=== PATIENT | male | born 1990 | race American Indian/Alaskan Native ===

== ENCOUNTER 2017-02-15 14:51 | Emergency (ER) | payer SELFPAY ==
[2017-02-15 15:14] VITALS: BP 129/82; PULSE 76; RESP 18; TEMP 98; O2SAT 99
--- NOTE | 2017-02-15 15:52 | ED PDOC ---
HPI: General Adult Time Seen by Provider: 02/15/17 15:21 Chief Complaint (Nursing): Medical Clearance Chief Complaint (Provider): Denies complaint History Per: Patient History/Exam Limitations: no limitations Additional Complaint(s): Chandrakant Wagner, a 27 year old male, presents to the ED for treatment. The patient reports that his partner was diagnosed with trichomoniasis and he is here only to get checked. Denies any symptoms. Past Medical History Reviewed: Historical Data, Nursing Documentation, Vital Signs Vital Signs: Last Vital Signs Temp 98 F 02/15/17 15:12 Pulse 76 02/15/17 15:12 Resp 18 02/15/17 15:12 BP 129/82 02/15/17 15:12 Pulse Ox 99 02/15/17 15:55 - Medical History PMH: No Chronic Diseases - Surgical History Surgical History: No Surg Hx - Family History Family History: States: Unknown Family Hx - Social History Current smoker - smoking cessation education provided: No Alcohol: None Drugs: Denies - Home Medications Home Medications: Ambulatory Orders Medication Instructions Recorded metroNIDAZOLE [Flagyl] 2,000 mg PO ONCE #4 tab 02/15/17 - Allergies Allergies/Adverse Reactions: Allergies Allergy/AdvReac Type Severity Reaction Status Date / Time No Known Allergies Allergy Verified 02/15/17 15:12 Review of Systems Constitutional: Positive for: Other (Patient denies nay medical problems) Physical Exam - Reviewed Nursing Documentation Reviewed: Yes Vital Signs Reviewed: Yes - Physical Exam Appears: Positive for: Non-toxic, No Acute Distress Head Exam: Positive for: ATRAUMATIC, NORMAL INSPECTION, NORMOCEPHALIC Skin: Positive for: Normal Color, Warm, Dry Eye Exam: Positive for: Normal appearance, EOMI, PERRL Cardiovascular/Chest: Positive for: Regular Rate, Rhythm, Chest Non Tender. Negative for: Tachycardia Respiratory: Positive for: Normal Breath Sounds. Negative for: Wheezing, Respiratory Distress Neurologic/Psych: Positive for: Alert, Oriented, Gait - ECG O2 Sat by Pulse Oximetry: 99 (RA) Pulse Ox Interpretation: Normal Medical Decision Making Medical Decision Making: Partner states she was having discharge and was seen at the clinic today and tolder her she had either BV or trichamonas. No lab results back yet. Discussed sending urine for confirmation. Initial Plan: * Chlamydia/GC RNA, TMA * Urine Culture Disposition - Clinical Impression Clinical Impression: STI (sexually transmitted infection) - Disposition Disposition: Routine/Home Disposition Time: 16:00 Condition: STABLE Prescriptions: metroNIDAZOLE [Flagyl] 2,000 mg PO ONCE #4 tab Instructions: Trichomoniasis (ED)
== END 2017-02-15 15:51 | disposition home or self-care (01) ==
LOC: H.ER 14:51
DX: A74.9 Chlamydial infection, unspecified (principal)